=== PATIENT | female | born 1945 | race Hispanic/Latino ===

== ENCOUNTER 2018-10-20 14:29 | Emergency (ER) | payer MEDICARE ==
[~2018-10-20] VITALS: Ht 157.5 cm; Wt 60.8 kg
[~2018-10-20 14:29] MED LIST: ASPIRIN81 MG PO; CARVEDILOL3.125 MG PO; HYDROCHLOROTHIA25 MG PO; METFORMIN HCL500 MG PO; OMEPRAZOLE20 MG PO; VYTORIN 10-201 EACH PO
[2018-10-20] MEDS ORDERED: HYDRALAZINE HCL 20 MG/ML VIAL IV ONE (15:30)
[2018-10-20] MEDS ORDERED: MECLIZINE HCL 12.5 MG TAB PO ONE (16:00)
--- NOTE | 2018-10-20 17:13 | Diagnostic Imaging Report ---
Exam: Head CT without contrast History: Dizziness, elevated blood pressure Comparison studies: None Technique: Axial images were obtained from the skull base to the vertex. Coronal and sagittal images reconstructed from the axial data. Dose modulation, iterative reconstruction, and/or weight based adjustment of the mA/kV was utilized to reduce the radiation dose to as low as reasonably achievable. Radiation dose: Total DLP: 9 or 21 mGy*cm. Estimated effective dose: DLP x 0.015 Intravenous contrast: None Findings: Scalp: No abnormalities. Bones: No fractures, blastic or lytic lesions. Brain sulci: Appropriate for age. Ventricles: Normal in size and configuration. No hydrocephalus. Extra-axial spaces: No masses, no fluid collection. Parenchyma: No mass, acute hemorrhage or acute or chronic cortical vascular insults. A few scattered hypodensities in the supratentorial white matter are nonspecific but most compatible with chronic microvascular ischemic changes. Sellar/suprasellar region: No abnormalities. Craniocervical junction: Patent foramen magnum. No Chiari one malformation. IMPRESSION: 1. No acute intracranial abnormalities. 2. Mild chronic microvascular ischemic changes. Signed by: Dr. Trent Wu M.D. on 10/20/2018 5:10 PM
[2018-10-20 17:35] LABS: BASOPHILS % 0.2 % (0.0-1.0); EOSINOPHILS # (AUTO) 0.1 (0.0-0.4); EOSINOPHILS % 0.7 % (0.0-6.0); HEMATOCRIT 38.2 % (34.2-44.1); HEMOGLOBIN 12.6 g/dL (12.0-16.0); LYMPHOCYTES # (AUTO) 1.9 (1.0-3.2); LYMPHOCYTES % 20.1 % (18.0-39.1); MEAN CORPUSCULAR HEMOGLOBIN 30.1 pg (28-32); MEAN CORPUSCULAR VOLUME 91.4 fL (81-99); MONOCYTES # (AUTO) 0.4 (0.2-0.8); MONOCYTES % 3.7 % (4.4-11.3); NEUTROPHILS # (AUTO) 7.1 (2.1-6.9); NEUTROPHILS % 74.9 % (38.7-80.0); PLATELET COUNT 274 x10e3/uL (140-360); RED BLOOD COUNT 4.18 x10e6/uL (3.6-5.1); RED CELL DISTRIBUTION WIDTH 12.5 % (11.7-14.4)
[2018-10-20 18:13] LABS: ANION GAP 13.6 mmol/L (8-16); BLOOD UREA NITROGEN 19 mg/dL (7-26); BUN/CREATININE RATIO 27 (6-25); CALCIUM 9.6 mg/dL (8.4-10.2); CARBON DIOXIDE 23 mmol/L (22-29); CHLORIDE 107 mmol/L (98-107); EST GLOMERULAR FILTRATION RATE > 60 ML/MIN (60-); GLUCOSE 105 mg/dL (74-118); POTASSIUM 3.6 mmol/L (3.5-5.1); SODIUM 140 mmol/L (136-145)
== END 2018-10-20 18:45 | disposition home or self-care (01) ==
LOC: ER 14:29
DX: R42 Dizziness and giddiness (principal); R51 Headache; I10 Essential (primary) hypertension; E11.9 Type 2 diabetes mellitus without complications
CPT/HCPCS: 36415; 70450; 80048; 82948; 85025; 99284

== ENCOUNTER 2019-06-06 01:17 | Emergency (ER) | payer MEDICARE, OTHER ==
[~2019-06-06] VITALS: Ht 160 cm; Wt 61.2 kg
[~2019-06-06 01:17] MED LIST changes: +AMARYL2 MG PO; +AMLODIPINE BESYL5 MG PO; +ASPIR 8181 MG PO; +ATORVASTATIN CA20 MG PO; +FENOFIBRATE145 MG PO; +LOSARTAN POTAS100 MG PO; +PANTOPRAZOLE SO40 MG PO
[2019-06-06] MEDS ORDERED: TYLENOL WITH C1 EACH PO (04:33)
[2019-06-06] MEDS ORDERED: CLINDAMYCIN HC300 MG PO (04:33)
[2019-06-06 05:17] VITALS: BP 155/77
== END 2019-06-06 05:00 | disposition home or self-care (01) ==
LOC: ER 01:17
DX: K08.89 Other specified disorders of teeth and supporting structures (principal); K02.9 Dental caries, unspecified
CPT/HCPCS: 99282

== ENCOUNTER 2022-09-03 17:21 | Emergency (ER) | payer MEDICARE, OTHER ==
[~2022-09-03] VITALS: Ht 160 cm; Wt 61.2 kg
[~2022-09-03 17:21] MED LIST changes: +CLINDAMYCIN HC300 MG PO; +TYLENOL WITH C1 EACH PO
[2022-09-03] MEDS ORDERED: SODIUM CHLORIDE 0.9% 1000ML 1,000 ML IV STA (18:04)
[2022-09-03] MEDS ORDERED: FUROSEMIDE INJ 10 MG/ML 4 ML VIAL IV ONE (18:15)
[2022-09-03] MEDS ORDERED: ONDANSETRON HCL INJ 2MG/ML 2ML 2 MG/ML VIAL IV PRN (18:15)
[2022-09-03 18:30] LABS: BASOPHILS % 0.3 % (0.0-1.0); EOSINOPHILS # (AUTO) 0.1 (0.0-0.4); EOSINOPHILS % 0.5 % (0.0-6.0); HEMATOCRIT 36.5 % (34.2-44.1); HEMOGLOBIN 12.3 g/dL (12.0-16.0); LYMPHOCYTES # (AUTO) 1.3 (1.0-3.2); LYMPHOCYTES % 10.2 % (18.0-39.1); MEAN CORPUSCULAR HEMOGLOBIN 30.5 pg (28-32); MEAN CORPUSCULAR HGB CONC 33.7 g/dL (31-35); MEAN CORPUSCULAR VOLUME 90.6 fL (81-99); MONOCYTES # (AUTO) 0.7 (0.2-0.8); MONOCYTES % 5.3 % (4.4-11.3); NEUTROPHILS # (AUTO) 10.8 (2.1-6.9); NEUTROPHILS % 83.2 % (38.7-80.0); PLATELET COUNT 246 x10e3/uL (140-360); RED BLOOD COUNT 4.03 x10e6/uL (3.6-5.1); RED CELL DISTRIBUTION WIDTH 12.8 % (11.7-14.4)
[2022-09-03 18:47] LABS: ALBUMIN 4.4 g/dL (3.5-5.0); ALBUMIN/GLOBULIN RATIO 1.2 (0.8-2.0); ANION GAP 17.4 mmol/L (8-16); CALCIUM 9.7 mg/dL (8.4-10.2); CREATININE, SERUM 0.92 mg/dL (0.57-1.11); POTASSIUM 3.4 mmol/L (3.5-5.1)
[2022-09-03 18:47] LABS: CLARITY,URINE CLEAR (CLEAR); COLOR,URINE YELLOW (YELLOW); KETONES,URINE NEGATIVE (NEGATIVE); LEUKOCYTE ESTERASE ,URINE NEGATIVE (NEGATIVE); NITRITE,URINE NEGATIVE (NEGATIVE); PROTEIN,URINE DIPSTICK NEGATIVE (NEGATIVE); URINE UROBILINOGEN 0.2 mg/dL (0.2 - 1)
[2022-09-03 18:53] LABS: BACTERIA,URINE MODERATE /HPF; EPITHELIAL CELLS,URINE FEW /LPF; WBC,URINE (MAN) 0-5 /HPF (0-5)
[2022-09-03] MEDS ORDERED: IOPAMIDOL 370 MG/ML 100 ML INFUS..BTL INJ ONE (19:20)
[2022-09-03] MEDS ORDERED: DICYCLOMINE HCL20 MG PO (21:06)
[2022-09-03] MEDS ORDERED: CEPHALEXIN500 MG PO (21:06)
[2022-09-03 21:23] VITALS: BP 109/80
== END 2022-09-03 21:25 | disposition home or self-care (01) ==
LOC: ER 17:24
DX: R10.13 Epigastric pain (principal); N39.0 Urinary tract infection, site not specified; M54.50 Low back pain, unspecified; E11.65 Type 2 diabetes mellitus with hyperglycemia; I10 Essential (primary) hypertension; E78.5 Hyperlipidemia, unspecified
CPT/HCPCS: 36415; 74177; 80053; 81001; 83690; 85025; 93005; 99284; J2405; J7030; Q9967

== ENCOUNTER 2022-09-15 22:42 | Emergency (ER) | payer MEDICARE, OTHER ==
[~2022-09-15] VITALS: Ht 160 cm; Wt 61.2 kg
[~2022-09-15 22:42] MED LIST changes: +CEPHALEXIN500 MG PO; +DICYCLOMINE HCL20 MG PO
[2022-09-15] MEDS ORDERED: DEXTROSE 50% SYRINGE 50 ML IV STA (23:05)
[2022-09-15 23:11] LABS: BASOPHILS % 0.2 % (0.0-1.0); EOSINOPHILS % 0.2 % (0.0-6.0); HEMATOCRIT 36.7 % (34.2-44.1); HEMOGLOBIN 11.8 g/dL (12.0-16.0); LYMPHOCYTES # (AUTO) 0.6 (1.0-3.2); LYMPHOCYTES % 11.3 % (18.0-39.1); MEAN CORPUSCULAR HEMOGLOBIN 30.2 pg (28-32); MEAN CORPUSCULAR HGB CONC 32.2 g/dL (31-35); MEAN CORPUSCULAR VOLUME 93.9 fL (81-99); MONOCYTES # (AUTO) 0.7 (0.2-0.8); MONOCYTES % 12.8 % (4.4-11.3); NEUTROPHILS # (AUTO) 3.9 (2.1-6.9); NEUTROPHILS % 75.1 % (38.7-80.0); PLATELET COUNT 227 x10e3/uL (140-360); RED BLOOD COUNT 3.91 x10e6/uL (3.6-5.1); RED CELL DISTRIBUTION WIDTH 12.6 % (11.7-14.4)
[2022-09-15] MEDS ORDERED: DEXTROSE 50% SYRINGE 50 ML IV ONE (23:11)
[2022-09-15 23:26] LABS: ANION GAP 17.9 mmol/L (8-16); CALCIUM 8.9 mg/dL (8.4-10.2); CREATININE, SERUM 0.88 mg/dL (0.57-1.11)
[2022-09-15 23:29] LABS: POTASSIUM 2.9 mmol/L (3.5-5.1)
[2022-09-15] MEDS: POTASSIUM CHLORIDE 20 MEQ TAB CR PO STA ×3 (23:32→23:40)
[2022-09-15] MEDS ORDERED: POTASSIUM CHLORIDE 20 MEQ TAB CR PO STA (23:34)
[2022-09-15] MEDS ORDERED: POTASSIUM CHLORIDE 20 MEQ TAB CR PO ONE (23:45)
[2022-09-15] MEDS ORDERED: KCL 20 MEQ PACKET/ ORAL SOLN ONE (23:47)
[2022-09-16] MEDS ORDERED: DEXTROSE 5%/0.9% SOD CHL 1,000 ML IV ONE (00:30)
[2022-09-16 03:53] VITALS: BP 106/54
[2022-09-16] MEDS ORDERED: ACETAMINOPHEN 325 MG TAB PO ONE (04:00)
[2022-09-16] MEDS ORDERED: ACETAMINOPHEN 325 MG TAB ONE (04:01)
== END 2022-09-16 03:55 | disposition home or self-care (01) ==
LOC: ER 22:50
DX: J10.1 Influenza due to other identified influenza virus with other respiratory manifestations (principal); E11.649 Type 2 diabetes mellitus with hypoglycemia without coma; I10 Essential (primary) hypertension; E78.5 Hyperlipidemia, unspecified; Z20.822 Contact with and (suspected) exposure to COVID-19; Z79.82 Long term (current) use of aspirin; Z79.84 Long term (current) use of oral hypoglycemic drugs; Z79.899 Other long term (current) drug therapy
CPT/HCPCS: 36415; 71045; 80048; 82948; 85025; 87400; 99284; J7042; J7799; U0002

== ENCOUNTER 2024-06-23 06:15 | Observation (INO) | payer MEDICARE, OTHER ==
[~2024-06-23] VITALS: Ht 160 cm; Wt 60.0 kg
[2024-06-23] VITALS (7 sets, daily range): BP systolic 145–160; BP diastolic 61–69; PULSE 56–86; RESP 16–20; TEMP 97.7–98.4; O2SAT 96–99
[2024-06-23 06:38] LABS: BASOPHILS % 0.3 % (0.0-1.0); EOSINOPHILS # (AUTO) 0.1 (0.0-0.4); EOSINOPHILS % 2.3 % (0.0-6.0); HEMATOCRIT 37.3 % (34.2-44.1); HEMOGLOBIN 12.5 g/dL (12.0-16.0); LYMPHOCYTES # (AUTO) 1.7 (1.0-3.2); LYMPHOCYTES % 27.6 % (18.0-39.1); MEAN CORPUSCULAR HEMOGLOBIN 30.9 pg (28-32); MEAN CORPUSCULAR HGB CONC 33.5 g/dL (31-35); MEAN CORPUSCULAR VOLUME 92.1 fL (81-99); MONOCYTES # (AUTO) 0.5 (0.2-0.8); MONOCYTES % 8.7 % (4.4-11.3); NEUTROPHILS # (AUTO) 3.7 (2.1-6.9); NEUTROPHILS % 60.8 % (38.7-80.0); PLATELET COUNT 267 x10e3/uL (140-360); RED BLOOD COUNT 4.05 x10e6/uL (3.6-5.1); RED CELL DISTRIBUTION WIDTH 12.3 % (11.7-14.4); WHITE BLOOD COUNT 6.09 x10e3/uL (4.8-10.8)
[2024-06-23 06:51] LABS: INR 0.86; PROTHROMBIN TIME 12.2 seconds (11.9-14.5)
[2024-06-23 06:52] LABS: PARTIAL THROMBOPLASTIN TIME 30.8 seconds (23.8-35.5)
[2024-06-23 06:58] LABS: ALANINE AMINOTRANSFERASE 15 IU/L (0-55); ALBUMIN 4.8 g/dL (3.5-5.0); ALBUMIN/GLOBULIN RATIO 1.6 (0.8-2.0); ALKALINE PHOSPHATASE 124 IU/L (40-150); ANION GAP 14.3 mmol/L (8-16); BILIRUBIN,TOTAL 0.4 mg/dL (0.2-1.2); BLOOD UREA NITROGEN 30 mg/dL (7-26); BUN/CREATININE RATIO 30 (6-25); CALCIUM 9.6 mg/dL (8.4-10.2); CARBON DIOXIDE 22 mmol/L (22-29); CHLORIDE 106 mmol/L (98-107); CREATINE KINASE 96 IU/L (29-168); EST GLOMERULAR FILTRATION RATE 58 ML/MIN (>=60); GLUCOSE 185 mg/dL (74-118); LIPASE 51 U/L (8-78); SODIUM 139 mmol/L (136-145); TOTAL PROTEIN 7.8 g/dL (6.5-8.1)
[2024-06-23 06:59] LABS: POTASSIUM 3.3 mmol/L (3.5-5.1)
[2024-06-23 07:03] LABS: MAGNESIUM 1.7 MG/DL (1.3-2.1)
[2024-06-23 07:07] LABS: TROPONIN I < 0.001 ng/mL (0-0.300)
[2024-06-23] MEDS: SODIUM CHLORIDE 0.9% 500ML 500 ML IV ONE (07:26)
[2024-06-23] MEDS: ASPIRIN 81 MG CHEW TAB PO STA (07:27)
[2024-06-23] MEDS ORDERED: NITROGLYCERIN 0.4 MG SUBL SL PRN (07:30)
[2024-06-23] MEDS ORDERED: ONDANSETRON HCL INJ 2MG/ML 2ML 2 MG/ML VIAL IV PRN (07:30)
[2024-06-23] MEDS ORDERED: Morphine 2mg Syringe 2 MG/ML SYR IV PRN (07:30)
[2024-06-23] MEDS ORDERED: SIMETHICONE 80 MG CHEW PO PRN (12:00)
[2024-06-23] MEDS ORDERED: MELATONIN 3 MG TAB PO PRN (12:00)
[2024-06-23] MEDS ORDERED: DEXTROSE 50% SYRINGE 50 ML IV PRN (12:00)
[2024-06-23] MEDS ORDERED: METOPROLOL TARTRATE INJ 1 MG/ML VIAL IV PRN (12:00)
[2024-06-23] MEDS ORDERED: DOCUSATE SODIUM 100 MG CAP PO PRN (12:00)
[2024-06-23] MEDS ORDERED: ACETAMINOPHEN 325 MG TAB PO PRN (12:00)
[2024-06-23] MEDS ORDERED: ALBUTEROL/IPRATROPIUM 3 ML NEB NEB PRN (12:00)
[2024-06-23 12:20] LABS: CHOL/HDL RATIO 2.3 (3.0-3.6)
[2024-06-23] MEDS: ENOXAPARIN SOD INJ 40 MG/0.4 ML SYR SC SCH (19:36)
[2024-06-23] MEDS: HYDRALAZINE HCL 10 MG TAB PO SCH (19:39)
[2024-06-23] MEDS: INSULIN REGULAR, HUMAN 100 UNIT/1 ML SQ SCH (20:09)
[2024-06-23 20:54] LABS: CREATINE KINASE 70 IU/L (29-168)
[2024-06-23] MEDS: ATORVASTATIN 20 MG TAB PO SCH (21:00)
[2024-06-23 21:02] LABS: TROPONIN I < 0.001 ng/mL (0-0.300)
[2024-06-24] MEDS ORDERED: ASPIRIN 81 MG ENTERIC COATED PO SCH (09:00)
== END 2024-06-23 22:50 | disposition home or self-care (01) ==
LOC: ER 06:28 → ERHOLD 07:43 → MED/SURG 09:11
PROVIDERS: ADMIT Internal Medicine; ATTEND Internal Medicine
DX: R07.89 Other chest pain (principal); I10 Essential (primary) hypertension; E78.5 Hyperlipidemia, unspecified; E11.9 Type 2 diabetes mellitus without complications; Z79.84 Long term (current) use of oral hypoglycemic drugs; K21.9 Gastro-esophageal reflux disease without esophagitis; Z11.52 Encounter for screening for COVID-19; Z90.11 Acquired absence of right breast and nipple; Z79.899 Other long term (current) drug therapy; Z79.82 Long term (current) use of aspirin
CPT/HCPCS: 36415; 71045; 80053; 80061; 82550; 82948; 83036; 83690; 83735; 84484; 85025; 85610; 85730; 93005; 96372; 99284; G0378; J1650; J2470; J7040; U0002

== ENCOUNTER 2024-07-08 19:33 | Emergency (ER) | payer MEDICARE ==
[~2024-07-08] VITALS: Ht 160 cm; Wt 59.9 kg
[2024-07-08 20:45] LABS: BASOPHILS % 0.3 % (0.0-1.0); EOSINOPHILS # (AUTO) 0.1 (0.0-0.4); EOSINOPHILS % 1.6 % (0.0-6.0); HEMATOCRIT 37.1 % (34.2-44.1); LYMPHOCYTES # (AUTO) 1.5 (1.0-3.2); LYMPHOCYTES % 19.8 % (18.0-39.1); MEAN CORPUSCULAR HEMOGLOBIN 30.5 pg (28-32); MEAN CORPUSCULAR HGB CONC 32.3 g/dL (31-35); MEAN CORPUSCULAR VOLUME 94.2 fL (81-99); MONOCYTES # (AUTO) 0.5 (0.2-0.8); MONOCYTES % 7.4 % (4.4-11.3); NEUTROPHILS # (AUTO) 5.2 (2.1-6.9); NEUTROPHILS % 70.6 % (38.7-80.0); PLATELET COUNT 240 x10e3/uL (140-360); RED BLOOD COUNT 3.94 x10e6/uL (3.6-5.1); RED CELL DISTRIBUTION WIDTH 12.6 % (11.7-14.4); WHITE BLOOD COUNT 7.34 x10e3/uL (4.8-10.8)
[2024-07-08 20:55] LABS: BILIRUBIN,URINE NEGATIVE (NEGATIVE); CLARITY,URINE CLEAR (CLEAR); COLOR,URINE YELLOW (YELLOW); GLUCOSE, URINE NEGATIVE (NEGATIVE); KETONES,URINE NEGATIVE (NEGATIVE); LEUKOCYTE ESTERASE ,URINE TRACE (NEGATIVE); NITRITE,URINE NEGATIVE (NEGATIVE); PH,URINE 7.5 (5 - 7); PROTEIN,URINE DIPSTICK NEGATIVE (NEGATIVE); URINE UROBILINOGEN 0.2 mg/dL (0.2 - 1)
[2024-07-08] MEDS: ONDANSETRON HCL INJ 2MG/ML 2ML 2 MG/ML VIAL IV STA (20:57)
[2024-07-08] MEDS: MECLIZINE HCL 12.5 MG TAB PO ONE (20:57)
[2024-07-08 20:58] LABS: BACTERIA,URINE RARE /HPF; EPITHELIAL CELLS,URINE RARE /LPF; RBC,URINE 0-5 /HPF (0-5); WBC,URINE (MAN) 0-5 /HPF (0-5)
[2024-07-08 21:06] LABS: ALBUMIN 4.5 g/dL (3.5-5.0); ALBUMIN/GLOBULIN RATIO 1.4 (0.8-2.0); ANION GAP 14.8 mmol/L (8-16); BILIRUBIN,TOTAL 0.3 mg/dL (0.2-1.2); CALCIUM 9.7 mg/dL (8.4-10.2); CREATININE, SERUM 1.01 mg/dL (0.57-1.11); POTASSIUM 3.8 mmol/L (3.5-5.1); TOTAL PROTEIN 7.7 g/dL (6.5-8.1)
[2024-07-08 23:17] VITALS: PULSE 69; RESP 18; TEMP 98.2
[2024-07-08] MEDS ORDERED: ONDANSETRON ODT4 MG SL (23:26)
[2024-07-08] MEDS ORDERED: ANTIVERT25 M1 PO (23:26)
[2024-07-08 23:34] VITALS: BP 124/57; PULSE 69; RESP 18; TEMP 98.2; O2SAT 97
== END 2024-07-08 23:35 | disposition home or self-care (01) ==
LOC: ER 20:10
DX: H81.10 Benign paroxysmal vertigo, unspecified ear (principal); R11.0 Nausea; I10 Essential (primary) hypertension; E11.65 Type 2 diabetes mellitus with hyperglycemia; E78.5 Hyperlipidemia, unspecified; K21.9 Gastro-esophageal reflux disease without esophagitis; Z85.3 Personal history of malignant neoplasm of breast
CPT/HCPCS: 36415; 70450; 80053; 81001; 84484; 85025; 93005; 99284; J2405; J8597